=== PATIENT | female | born 1960 | race Caucasian/White ===

== ENCOUNTER 2019-03-04 11:56 | Inpatient (IN) | payer OTHER ==
[~2019-03-04] VITALS: Ht 160 cm; Wt 76.7 kg
[2019-03-04 12:44] VITALS: BP 139/67
[2019-03-04] MEDS ORDERED: PRILOSEC OTC20 MG PO (12:49)
[2019-03-04 13:54] LABS: ABSOLUTE NEUTROPHILS 9.2 thou/uL (1.4-8.2); BASOPHILS 1.2 % (0.0-2.0); EOSINOPHILS 0.3 % (0.0-3.0); HEMATOCRIT 42.2 % (37.0-47.0); HEMOGLOBIN 14.3 gm/dL (12.0-15.0); LYMPHOCYTES 21.3 % (24.0-44.0); MCH 30.3 pg (26.0-34.0); MCHC 33.9 g/dL (28.0-37.0); MCV 89.4 fL (80.0-100.0); MONOCYTES 5.2 % (1.0-8.0); PLATELET COUNT 318 thou/uL (150-400); RBC 4.71 mil/uL (4.20-5.00); RDW 14.2 % (10.5-14.5); WBC 14.6 thou/uL (4.0-11.0)
[2019-03-04 14:02] LABS: CALCIUM 9.7 mg/dL (8.5-10.1); CREATININE 0.7 mg/dL (0.6-1.0); POTASSIUM 4.8 mmol/L (3.5-5.1)
[2019-03-04 14:05] LABS: APTT 19.6 Seconds (24.5-32.8); PROTIME 9.9 Seconds (9.3-11.4)
[2019-03-04 20:01] VITALS: BP 126/47
[2019-03-04 20:07] LABS: URINE BILIRUBIN NEGATIVE (Negative); URINE BLOOD TRACE (Negative); URINE CLARITY CLEAR; URINE COLOR YELLOW; URINE GLUCOSE-RANDOM* NEGATIVE (Negative); URINE KETONES NEGATIVE (Negative); URINE LEUKOCYTES-REFLEX NEGATIVE (Negative); URINE NITRITE-REFLEX NEGATIVE (Negative); URINE PROTEIN (DIPSTICK) NEGATIVE (Negative); URINE UROBILINOGEN 0.2 E.U./dl (0.2-1.0)
[2019-03-04 21:00] VITALS: BP 132/52
[2019-03-04 22:00] VITALS: BP 129/47
[2019-03-04 23:00] VITALS: BP 122/52
[2019-03-05] VITALS (25 sets, daily range): BP systolic 103–157; BP diastolic 22–70
--- NOTE | 2019-03-05 05:00 | NUR ---
PT SLEPT OFF/ON. UP TO BS COMMODE TO VOID. GAIT STEADY. HYDROCODONE GIVEN FOR HEADACHE-PT STATES SHE GETS HEADACHE OFTEN. RT LEG ASSESSMENT UNCHANGED-FOOT WARM, AND ABLE TO DOPPLE PULSES. VS WNL. HEPARIN GTT INFUSING ORDERED-AM APTT PENDING. WILL CONT TO PROGRESS TOWARD GOALS
[2019-03-05 05:41] LABS: HEMATOCRIT 37.7 % (37.0-47.0); HEMOGLOBIN 12.6 gm/dL (12.0-15.0); MCH 30.1 pg (26.0-34.0); MCHC 33.3 g/dL (28.0-37.0); MCV 90.3 fL (80.0-100.0); RBC 4.18 mil/uL (4.20-5.00); RDW 13.8 % (10.5-14.5); WBC 8.9 thou/uL (4.0-11.0)
[2019-03-05 06:12] LABS: ANION GAP 10 mmol/L (7-16); BUN 8 mg/dL (7-18); CALCIUM 8.7 mg/dL (8.5-10.1); CHLORIDE 105 mmol/L (98-107); CHOLESTEROL 211 mg/dL (<200); CO2 25 mmol/L (21-32); CREATININE 0.7 mg/dL (0.6-1.0); GLUCOSE 119 mg/dL (74-106); HDL CHOLESTEROL 25 mg/dL (>40); LDL CHOLESTEROL 144 mg/dL (<100); SODIUM 140 mmol/L (136-145); TC:HDL 8.4 Ratio (Not establshd); TRIGLYCERIDE 213 mg/dL (<150); VLDL 43 mg/dL (<40)
--- NOTE | 2019-03-05 10:28 | NUR ---
FAXED FACE SHEET TO [place] AT [facility] TO HELP WITH MEDICAID APPLICATION.
--- NOTE | 2019-03-05 16:43 | NUR ---
CM ASSESSMENT: CASE OPENED FOR DC PLANNING. CLINICAL INFO REVIEWED. PT ADMITTED WITH LE PAIN AND FOUND TO HAVE ARTERIAL OCCLUSION. PT CURRENTLY IN IR. SPOKE IWTH PT'S SPOUSE LOWEEL BY PHONE. HE IS CURRENTLY IS [place] AND AWARE OF PT'S HOSPITALIZATION. PT AND SPOUSE LIVE IN HOUSE, PT DOES NOT WORK AND WAS INDEPENDENT WITH ADLS PRIOR TO ADMIT. NO DME USE OR PREVIOUS HOME HEALTH USE. SPOUSE REPORTS PT "BEEN HAVING TROUBLE GETTING AROUND FOR SOME TIME". SPOUSE STATES HE JUST STARTED A NEW JOB AND IS NOT ELIGIBLE FOR MEDICAL BENEFITS YET SO PT IS WITHOUT MEDICAL INSURANCE. REFERRAL TO [facility] FAXED BY DC CLOTHES MARKER.
--- NOTE | 2019-03-05 19:26 | NUR ---
ASSUMED CARE THIS AM. AWAKE AND ALERT. MONITORING RLE PULSES AND TEMPERATURE. OUT OF BED TO COMMODE AND THIS IS WHEN SHE HAS PAIN IN HER LEG. TO IR AT 230 AND SHE CAME BACK WITH SHEATH TO LEFT GROIN WITH TPA INFUSING AT 25ML/HR AND INTERGRILIN AT 1MCG/KG/MIN OR 6.7ML HR. NO CHANGE IN TEMPERATURE OR PULSES TO RLE BUT PAIN INCREASED. BEDREST AND FLAT UNTIL TAKEN BACK TO IR TOMORROW. FENTANYL ORDERED AND GIVEN WITH GOOD RESULTS.
[2019-03-06] VITALS (21 sets, daily range): BP systolic 113–153; BP diastolic 37–62
[2019-03-06 10:30] LABS: HEMATOCRIT 35.7 % (37.0-47.0); HEMOGLOBIN 11.9 gm/dL (12.0-15.0); MCH 30.1 pg (26.0-34.0); MCHC 33.5 g/dL (28.0-37.0); RBC 3.96 mil/uL (4.20-5.00); RDW 13.7 % (10.5-14.5); WBC 8.1 thou/uL (4.0-11.0)
[2019-03-06 10:40] LABS: CALCIUM 8.6 mg/dL (8.5-10.1); CREATININE 0.7 mg/dL (0.6-1.0); POTASSIUM 3.8 mmol/L (3.5-5.1)
--- NOTE | 2019-03-06 14:13 | NUR ---
ASSUMED CARE OF PT AT 0700 THIS SHIFT. PT HAS BEEN COOPERATIVE, HAS HAD SOME PAIN IN HER RIGHT KNEE. PT HAS BEEN ON TPA AND INTEGRILIN GTT PER IR, DR CARSON. PT WAS TAKEN BACK TO IR TO REEVALUATE OCCLUSION, AND IS CURRENTLY BACK IN THE ROOM, REMAINING ON TPA AND INTEGRILIN GTT. IR WILL REEVALUATE AGAIN IN THE AFTERNOON. PT HAS HAD VISITORS THIS SHIFT, EDUCATION WAS PROVIDED. PLAN OF CARE IS TO CONTINUE TO MONITOR PT CLOSELY AT THIS TIME.
[2019-03-07] VITALS (30 sets, daily range): BP systolic 111–159; BP diastolic 44–118
--- NOTE | 2019-03-07 01:36 | NUR ---
SHIFT NOTE PT ASSESSMENT AND VITAL SIGNS CHARTED. PT CONTINUED TO LAY FLAT IN BED WITH LEGS STRAIGHT THOUGH OUT SHIFT. PT HAD COMPLAINTS OF PAIN THAT WAS CONTROLLED WITH PO PAIN MEDICATION. PT HAD NO S/SX OF SOA, CHEST PAIN, OR NV. PT LOG ROLLS TO GET ON TO BED LUGO. PT CLEANED UP DURING SHIFT. PT WILL CONTINUE TO BE MONITORED TILL THE END OF THE SHIFT.
[2019-03-07 04:57] LABS: HEMATOCRIT 33.3 % (37.0-47.0); HEMOGLOBIN 11.2 gm/dL (12.0-15.0); MCH 30.4 pg (26.0-34.0); MCHC 33.6 g/dL (28.0-37.0); MCV 90.5 fL (80.0-100.0); RBC 3.68 mil/uL (4.20-5.00); RDW 13.5 % (10.5-14.5); WBC 7.6 thou/uL (4.0-11.0)
[2019-03-07 05:05] LABS: CREATININE 0.7 mg/dL (0.6-1.0); POTASSIUM 3.9 mmol/L (3.5-5.1)
--- NOTE | 2019-03-07 10:33 | NUR ---
LEFT FOR IINTERVENTIONAL RADIOLOGY VIA BED AT 0750.
[2019-03-07] MEDS ORDERED: ASPIRIN325 PO (11:15)
[2019-03-07] MEDS ORDERED: PLAVIX 75 MG TA75 M1 PO (11:16)
--- NOTE | 2019-03-07 12:51 | NUR ---
RETURNED FROM IR - RIGHT GROIN WITH DRY GAUZE AND TRANSPARENT DRESSING INTACT ECCYMOSIS AROUND AREA BUT SOFT WITHOUT INDERATION. DROWSY BUT RESPONDS TO VERBAL STIMULI.
--- NOTE | 2019-03-07 17:02 | HC ---
[facility] [place] [address] CONSULTATION Name: ODELL MELENDEZ Room #: 238-P ADM IN M.R.#: [id number] Admission: 03/04/19 ������������������ Attend Phys: Naun Macdonald MD Discharge: ������������������ Date of : 62 Report #: [id number] THIS REPORT FOR: //name// CC: SEE physician/PCP Naun Macdonald DATE OF SERVICE: 03/05/2019 We were asked to see the patient in consultation. HISTORY OF PRESENT ILLNESS: The patient is a 58-year-old with subacute onset of right lower extremity discomfort. The patient states that she has had chronic problem with the left hip with pain on ambulation. This past , the patient noted new problems in the right lower extremity with walking and over the weekend, this continued and became noticeable at rest. The patient describes pain variously on the groin, thigh and fisher. The patient states that this happened after a long car trip down to [place] with a long period of being seated. We note that the patient is a longtime smoker. MEDICATIONS AT HOME: Omeprazole for gastritis. Denies other chronic disease such as hypertension and diabetes. FAMILY HISTORY: Not significant for vascular disease. SOCIAL HISTORY: As mentioned, the patient is a longtime smoker. OTHER PAST HISTORY: The patient is status post hysterectomy in her 20s. REVIEW OF SYSTEMS: GENERAL: The patient has had no fevers, chills. HEENT: No vision changes, no headache, no hearing problems, no nasal discharge. RESPIRATORY: Denies cough, shortness of breath. CARDIAC: Denies chest pain, palpitations. GASTROINTESTINAL: Admits to some problems with gastritis, relieved with omeprazole. No nausea, vomiting blood. GENITOURINARY: No urgency, frequency, blood. MUSCULOSKELETAL: As mentioned, chronic left hip pain with ambulation. The patient states back in 2012 she was able to walk 10-13 miles without problems. NEUROLOGIC: New problems with numbness and weakness in the right lower extremity. ENDOCRINE: No goiter. No tremor. SKIN: No rash or infection. PSYCHIATRIC: No depression or anxiety. [facility] [address] [place] [address] CONSULTATION Name: ODELL MELENDEZ Room #: 238-P [facility] IN M.R.#: [id number] Admission: 03/04/19 ������������������ Attend Phys: Naun Macdonald MD Discharge: ������������������ Date of : 62 Report #: [id number] PHYSICAL EXAMINATION: GENERAL: The patient is lying in bed, seems without distress, but a bit uncomfortable after having just walked to the bathroom due to lower extremity discomfort. VITAL SIGNS: Temperature 36.8, heart rate 62, respiratory rate 14, blood pressure 126/50, O2 sat 90% on 2 liters. GENERAL: The patient is mildly obese, slightly endomorphic habitus. HEENT: Normocephalic. Pupils are round, equal. No icterus. No arcus. NECK: No mass, no bruit. CHEST: Clear to auscultation. HEART: Rhythm regular without murmur. ABDOMEN: Soft, no mass, no tenderness. EXTREMITIES: Capillary refill is present in feet, but they are a bit pale bilaterally. No cyanosis, no edema. VASCULAR: I do not feel femoral, popliteal, dorsalis pedis or posterior tibial pulses on the right or left. NEUROLOGIC: No focal motor or sensory dysfunction. SKIN: No rash or infection. MUSCULOSKELETAL: No obvious bone or joint asymmetry or deformity. PSYCHIATRIC: Shows insight into problem and answers questions appropriately. 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 There appears to be enough reconstitution that the extremities are not acutely threatened and this suggests chronic problem with more recent thrombosis. We note plans for arteriography later in the day and all recommendations will follow the results of this. We note, the patient is on IV heparin until then. Thank you for the consult. ��������������������������������������������� <ELECTRONICALLY SIGNED> ���������������������������������������� By: Masoud Hernandez MD ��������������������������������������������� 03/07/19 1702 [id number] Masoud Hernandez MD /nt
--- NOTE | 2019-03-07 19:57 | NUR ---
1300 RIGHT GROIN NOTED TO HAVE APPROX 20ML BRIGHT RED BLOOD OOZING AROUND TRANSPARENT DRESSING. PRESSURE HELD FOR 45 MIN AND BLEEDING SUBSIDED. GAUZE AND TRANSPARENT DRESSING APPLIED.
--- NOTE | 2019-03-07 19:59 | NUR ---
REMAINES ON BEDREST UNTIL 2099. FREQUENT C/O NAUSEA AND PAIN, ZOFRAN AND FENTANYL GIVEN WITH MINIMAL RELIEF. EXTERNAL CATHETER INPLACE.
--- NOTE | 2019-03-07 20:00 | NUR ---
ASSUMED CARE OF PT. AWAKE AND ALERT FAMILY AT BEDSIDE. SINUS RHYTHM BILAT GROIN SITES INTACT. NO BLEEDING. RIGHT GROIN SITE ECCHYMOTIC PEDAL PULSES 2+ BILAT FEET WARM AND DRY C/O HEADACHE. DENIES CHEST PAIN NOR SOA. WILL CONT TO MONITOR CLOSELY.
[2019-03-08] VITALS (15 sets, daily range): BP systolic 113–161; BP diastolic 50–67
--- NOTE | 2019-03-08 06:00 | NUR ---
A VERY DELIGHTFUL LITTLE LADY. SLEPT MOST OF NOCT. DENIES PAIN NOR DISCOMFORT. IN GOOD SPIRITS. 1500 CC UO THIS SHIFT. PEDAL PULSES 3+ BIALKT GRON DRESSINGS DRY AND INTACT. WILL CONT TO MONITOR
[2019-03-08] MEDS ORDERED: PLAVIX 75 MG TA75 M1 PO (12:54)
[2019-03-08] MEDS ORDERED: LIPITOR40 MG PO (12:54)
--- NOTE | 2019-03-08 14:05 | NUR ---
SUMMARY: PATIENT WAS ALERT AND ORIENTED, VITALS STABLE. WALKED THE UNIT 3 TIMES AND TOLERATED WELL, DENIED PAIN. TOLERATED DIET W/O NAUSEA. ORDERS RECEIVED FOR DC HOME. NEW PRESCRIPTIONS AND DC INSTRUCTIONS GIVEN TO MINERVA. IV DC'D AND PATIENT TAKEN VIA W/C TO SPOUSE'S CAR BY RN.
== END 2019-03-08 13:47 | disposition home or self-care (01) | DRG 253 ==
LOC: ER 11:56 → EROBS 15:17 → ICU 15:17
PROVIDERS: Emergency Medicine; Nuclear Medicine Nuclear Cardiology; ADMIT Hospitalist
DX: I74.5 Embolism and thrombosis of iliac artery (principal); I74.3 Embolism and thrombosis of arteries of the lower extremities; I74.09 Other arterial embolism and thrombosis of abdominal aorta; F17.210 Nicotine dependence, cigarettes, uncomplicated; E78.5 Hyperlipidemia, unspecified; I70.211 Atherosclerosis of native arteries of extremities with intermittent claudication, right leg; I70.212 Atherosclerosis of native arteries of extremities with intermittent claudication, left leg; Z71.6 Tobacco abuse counseling; Z82.49 Family history of ischemic heart disease and other diseases of the circulatory system
CPT/HCPCS: 10078; 10203

== ENCOUNTER → 2019-11-29 | Outpatient (CLI) | payer BC ==
[~2019-11-29] MED LIST: ASPIRIN325 PO; LIPITOR40 MG PO; PLAVIX 75 MG TA75 M1 PO; PRILOSEC OTC20 MG PO
== END ==
LOC: SJCVCIMAG 08:19
PROVIDERS: ATTEND Nuclear Medicine Nuclear Cardiology
DX: I65.23 Occlusion and stenosis of bilateral carotid arteries (principal); I70.291 Other atherosclerosis of native arteries of extremities, right leg; E78.00 Pure hypercholesterolemia, unspecified; Z95.828 Presence of other vascular implants and grafts

== ENCOUNTER → 2020-02-20 | Outpatient (CLI) | payer OTHER | LOC: CAT 08:55 | PROVIDERS: ATTEND Internal Medicine Cardiovascular Disease | DX: Z13.6 Encounter for screening for cardiovascular disorders (principal); I25.10 Atherosclerotic heart disease of native coronary artery without angina pectoris; E78.00 Pure hypercholesterolemia, unspecified ==

== ENCOUNTER → 2020-04-25 | Outpatient (CLI) | payer BC | LOC: SJCVCIMAG 03-17 10:06 | PROVIDERS: ATTEND Internal Medicine Cardiovascular Disease | DX: T82.856A Stenosis of peripheral vascular stent, initial encounter (principal); M79.605 Pain in left leg; Y83.8 Other surgical procedures as the cause of abnormal reaction of the patient, or of later complication, without mention of misadventure at the time of the procedure; Y92.89 Other specified places as the place of occurrence of the external cause ==

== ENCOUNTER → 2020-05-02 | Outpatient (CLI) | payer BC ==
[~2020-05-02] VITALS: Ht 160 cm; Wt 81.6 kg
[~2020-05-02] MED LIST changes: +CRESTOR20 MG PO; +SUPER THERAVIT1 EACH PO; +VITAMIN C1000 MG PO; +ZETIA10 MG PO
[2020-05-02 07:21] LABS: ABSOLUTE NEUTROPHILS 6.1 thou/uL (1.4-8.2); BASOPHILS 0.9 % (0.0-2.0); EOSINOPHILS 0.7 % (0.0-3.0); HEMATOCRIT 41.9 % (37.0-47.0); HEMOGLOBIN 14.2 gm/dL (12.0-15.0); MCHC 33.8 g/dL (28.0-37.0); MCV 91.5 fL (80.0-100.0); MONOCYTES 6.6 % (1.0-8.0); PLATELET COUNT 332 thou/uL (150-400); POLYS 77.8 % (36.0-66.0); RBC 4.58 mil/uL (4.20-5.00); RDW 13.9 % (10.5-14.5); WBC 7.9 thou/uL (4.0-11.0)
[2020-05-02 07:29] VITALS: BP 126/68
[2020-05-02 08:01] LABS: CALCIUM 8.9 mg/dL (8.5-10.1); CREATININE 0.7 mg/dL (0.6-1.0); POTASSIUM 4.1 mmol/L (3.5-5.1)
--- NOTE | 2020-05-05 17:12 | CATHLAB ---
[facility] [place] [address] INVASIVE PROCEDURE REPORT Name: ODELL MELENDEZ [id number] Admission: 05/02/20 Attend Phys: Elias Carson MD Discharge: Date of : 62 Report #: [id number] THIS REPORT FOR: cc: FAM - No family physician/PCP FAM - No family physician/PCP Anand Muller MD [facility] ~ APPROVED REPORT Study performed: 05/02/2020 10:06:29 Patient Details The patient is a 60 year-old female Event Personnel Anand Muller Program Director/Morning Show Host, Katie Tijerina RN RN, Pierre Bloom RTR Scrub, Jeanne James RT(R)() Tiffanieub, Petar James RTR Monitor Procedures Performed Left Heart Cath w/or w/o Coronaries [id number] [facility] [id number] Initial Mod Sed Same Phys/QHP Gr [id number] Mod Sed Same Phys/QHP Ea [id number] Indication Chest pain Procedure Narrative The was infiltrated with 1% Lidocaine subcutaneous anesthesia. A SHEATH BRITE-TIP 6F X 11CM ([id number]) sheath was inserted into the RFA^. Coronary angiography was performed using coronary diagnostic catheters. The right coronary system was accessed and visualized with a JR4 catheter. The left coronary system was accessed and visualized with a JL4 catheter. The left ventricle was accessed and visualized with a PIGTAIL catheter. Left ventriculogram was performed in 30 degree projection. Closure device was deployed with a 6 Fr MYNX CONTROL 6F/7F L#[id number]. The patient tolerated the procedure well and there were no complications associated with the procedure. There was no hematoma. SEDATION AMOUNTS, FLUORO TIME AND CONTRAST TOTALS ARE FROM A COMBO CASE WITH DR CARSON Intraoperative Conscious Sedation Sedation start time: 834 Case end Time: 1053 Fentanyl 150 mcg Versed 4 mg [facility] [place] [address] INVASIVE PROCEDURE REPORT Name: ODELL MELENDEZ Room #: REG [facility]#: [id number] Admission: 05/02/20 Attend Phys: Elias Carson, Discharge: Date of : 62 Report #: [id number] Fluoro Time: 14.64 minutes Dose: DAP 22969.00 cGycm2 1917 mGy Contrast Type and Amount: Visipaque 212 ml Hemodynamics The aortic pressure is 175/71 mmHg with a mean of 116 mmHg. The left ventricular pressure is 175/9 mmHg with a mean of mmHg. The left ventricular end diastolic pressure is 25 mmHg. PCI Technique Lesion Percutaneous coronary intervention was performed on the Common iliac. PCI Technique Lesion 2 Percutaneous Coronary Intervention was performed on the Common iliac. Conclusion #1. Left main mild ostial disease giving rise to LAD and circumflex #2 left main with mild irregularities extends to the apex. A small somewhat attenuated distal vessel. No occlusive disease #3 circumflex OM nondominant with mild irregularity #4 dominant right coronary artery mild irregularity #5 normal left ventricular size and systolic function EF 60% Recommendations and plan: Continue aggressive risk factor modification no indication for coronary intervention. <ELECTRONICALLY SIGNED> By: Anand Muller MD, [facility] 05/05/201711 11 11 Anand Muller MD, FACC /INF
== END | disposition home or self-care (01) ==
LOC: CATH 06:25
PROVIDERS: ATTEND Nuclear Medicine Nuclear Cardiology
DX: R07.9 Chest pain, unspecified (principal); I25.10 Atherosclerotic heart disease of native coronary artery without angina pectoris; I70.213 Atherosclerosis of native arteries of extremities with intermittent claudication, bilateral legs; I70.1 Atherosclerosis of renal artery; I10 Essential (primary) hypertension; E78.5 Hyperlipidemia, unspecified; K21.9 Gastro-esophageal reflux disease without esophagitis; Z98.890 Other specified postprocedural states; Z79.899 Other long term (current) drug therapy; Z79.82 Long term (current) use of aspirin; Z90.710 Acquired absence of both cervix and uterus; Z90.49 Acquired absence of other specified parts of digestive tract; Z87.891 Personal history of nicotine dependence